=== PATIENT | female | born 1985 | race Caucasian/White ===

== ENCOUNTER 2019-09-15 18:45 | Emergency (ER) | payer OTHER, SELFPAY ==
[2019-09-15] MEDS ORDERED: Adacel (T-DAP) 0.5 ML SYRINGE ONE (18:57)
[2019-09-15] MEDS ORDERED: Lidocaine 1% (PF) 30 ML VIAL ONE (19:01)
--- NOTE | 2019-09-15 19:35 | RAD ---
EXAM: 3 views of the right foot HISTORY: Foot pain after trauma COMPARISON: None FINDINGS: 3 views of the right foot shows a mildly displaced fracture of the third metatarsal. Modera te dorsal soft tissue swelling is seen. No degenerative changes are present. IMPRESSION: Third metatarsal fracture
[2019-09-15] MEDS ORDERED: CEFAZOLIN 1 GM VIAL ONE (19:43)
[2019-09-15] MEDS ORDERED: Sodium Chloride 0.9% 100 ML ONE (19:43)
[2019-09-15 20:11] LABS: #Basophils 0.1 thou/uL (0.0-0.2); #Eosinphils 0.1 thou/uL (0.0-0.7); #Lymphocytes 2.2 thou/uL (1.20-3.40); #Monocytes 0.9 thou/uL (0.11-0.59); #Neutrophils 13.1 thou/uL (1.40-6.50); %Basophils 0.4 % (0.0-1.0); %Eosinophils 0.4 % (0.0-10.0); %Lymphocytes 13.5 % (21.0-51.0); %Monocytes 5.6 % (0.0-10.0); %Neutrophils 80.1 % (42.0-75.0); Hemoglobin 13.8 g/dL (12.0-16.0); Mean Corpuscular HGB CONC 30.7 g/dL (32.0-36.0); Mean Corpuscular Hemoglobin 27.2 pg (27.0-31.0); Mean Corpuscular Volume 88.5 fL (78.0-98.0); Platelet Count 333 thou/uL (130-400); RBC Distribution Width 11.5 % (11.5-14.5); Red Blood Cell (RBC) Count 5.06 mill/uL (4.20-5.40); White Blood Cell (WBC) Count 16.3 thou/uL (4.8-10.8)
[2019-09-15 20:24] LABS: Anion Gap 14 mmol/L (10-20); BUN (Urea Nitrogen) 13 mg/dL (7.0-18.7); Calc. Creatinine Clearance 0 mL/min (70-130); Calcium 9.4 mg/dL (7.8-10.44); Carbon Dioxide 24 mmol/L (22-29); Chloride 102 mmol/L (98-107); Estimated GFR-MDRD 79; Glucose 112 mg/dL (70-105); Potassium 3.9 mmol/L (3.5-5.1); Sodium 136 mmol/L (136-145)
== END 2019-09-15 20:43 | disposition short-term general hospital (02) ==
LOC: NAV ERS 18:45
DX: S92.331B Displaced fracture of third metatarsal bone, right foot, initial encounter for open fracture (principal); Z23 Encounter for immunization; W20.8XXA Other cause of strike by thrown, projected or falling object, initial encounter
CPT/HCPCS: 64450; 80048; 85025; 90471; 90715; 96365; J0690; J2001; J3490